=== PATIENT | female | born 1985 | race Caucasian/White ===

== ENCOUNTER 2024-05-02 14:17 | Outpatient (CLI) | payer OTHER ==
[~2024-05-02 14:17] MED LIST: IRON1 TAB PO; PEPCID40 MG PO; PRENATAL CAPLE1 EACH PO
== END 2024-05-02 14:18 | disposition home or self-care (01) ==
LOC: PRENATAL 14:17
PROVIDERS: ATTEND Obstetrics & Gynecology Maternal & Fetal Medicine
DX: O35.3XX0 Maternal care for (suspected) damage to fetus from viral disease in mother, not applicable or unspecified (principal); O44.00 Complete placenta previa NOS or without hemorrhage, unspecified trimester; O09.529 Supervision of elderly multigravida, unspecified trimester; O34.10 Maternal care for benign tumor of corpus uteri, unspecified trimester; Z3A.20 20 weeks gestation of pregnancy

== ENCOUNTER → 2024-07-21 14:46 | Outpatient (CLI) | payer OTHER | END | disposition home or self-care (01) | LOC: PRENATAL 14:46 | PROVIDERS: ATTEND Obstetrics & Gynecology Maternal & Fetal Medicine | DX: O26.849 Uterine size-date discrepancy, unspecified trimester (principal); O36.8199 Decreased fetal movements, unspecified trimester, other fetus; O09.529 Supervision of elderly multigravida, unspecified trimester; O34.10 Maternal care for benign tumor of corpus uteri, unspecified trimester; O99.019 Anemia complicating pregnancy, unspecified trimester; Z3A.32 32 weeks gestation of pregnancy ==

== ENCOUNTER 2024-09-05 13:00 | Inpatient (IN) | payer OTHER ==
[~2024-09-05] VITALS: Ht 160 cm; Wt 70.3 kg
[2024-09-07] VITALS (9 sets, daily range): BP systolic 100–131; BP diastolic 51–81
[2024-09-07] MEDS ORDERED: RINGERS SOLUTION,LACTATED 1,000 ML IV SCH (06:45)
[2024-09-07 07:05] LABS: URINE APPEARANCE Clear; URINE BILIRRUBIN Negative (NEGATIVE); URINE BLOOD Small; URINE COLOR Yellow; URINE GLUCOSE Negative (NEGATIVE); URINE KETONE Negative (NEGATIVE); URINE LEUKOCYTE Large; URINE NITRATE Negative; URINE PROTEIN Negative (NEGATIVE); URINE UROBILINOGEN 0.2 E.U./dl
[2024-09-07 07:06] LABS: URINE BACTERIA 1278.8 uL (0.0-1933); URINE EPITHELIAL CELLS 28.3 uL (0.0-38.8); URINE RBC 2.9 uL (0.0-20.8)
[2024-09-07 07:10] LABS: HEMATOCRIT 38.4 % (36.0-45.00); HEMOGLOBIN 13.4 g/dL (12.0-15.00); MEAN CELL VOLUME 95.5 fL (80.00-100.00); MEAN CORPUSCULAR HEMOGLOBIN 33.4 pg (27.00-32.0); PLATELET COUNT 260 K/uL (150-450); RED BLOOD COUNT 4.02 M/uL (4.00-6.00); RED CELL DISTRIBUTION WIDTH 13.6 % (11.5-14.5)
[2024-09-07 07:29] LABS: INR < 0.93; PARTIAL THROMBOPLASTIN TIME 27.1 SECONDS (22.0-34.0); PROTHROMBIN TIME 9.8 SECONDS (9.0-11.5)
[2024-09-07 08:28] LABS: BILIRUBIN TOTAL 0.79 mg/dL (0.3-1.2); CALCIUM 9.5 mg/dL (8.5-10.1); CREATININE SERUM 0.41 mg/dL (0.55-1.02); GFR 174.56; GLOBULINA 3.9 G/DL (2.4-3.5); POTASSIUM 3.94 mEq/L (3.5-5.1); TOTAL PROTEIN 6.9 gm/dL (6.4-8.2)
[2024-09-07] MEDS ORDERED: OXYTOCIN 500 ML IV SCH (10:00)
[2024-09-07] MEDS ORDERED: ERYTHROMYCIN BASE OPHT 1GM EACH TUBE OP ONE ×2 (11:20→13:45)
[2024-09-07] MEDS ORDERED: CHLORHEXIDINE GLUCONATE 120 ML BOTTLE TOP ONE ×2 (11:20→13:45)
[2024-09-07] MEDS ORDERED: OXYTOCIN 20 UNITS/1000ML RL PIGGYBAG IV ONE ×2 (11:20→13:09)
[2024-09-07] MEDS ORDERED: LIDOCAINE HCL 1% 10ML VIAL ONE (11:20)
[2024-09-07] MEDS ORDERED: METHYLERGONOVINE MALEATE 0.2 MG/ML AMPUL ONE (11:34)
[2024-09-07] MEDS ORDERED: ACETAMINOPHEN 500 MG GEL..CAP PO PRN (13:45)
[2024-09-07] MEDS ORDERED: LIDOCAINE HCL 1% 10ML VIAL IJ ONE (13:45)
[2024-09-07] MEDS ORDERED: OXYTOCIN 1,000 ML IV SCH ×2 (13:45)
[2024-09-07] MEDS ORDERED: CHLORHEXIDINE GLUCONATE 120 ML BOTTLE TOP SCH (13:45)
[2024-09-07] MEDS ORDERED: IBUprofen 400 MG TABLET PO PRN (13:45)
[2024-09-07] MEDS ORDERED: METHYLERGONOVINE MALEATE 0.2 MG/ML AMPUL IM ONE (15:15)
[2024-09-07] MEDS ORDERED: DOCUSATE SODIUM 100MG CAP PO SCH (17:00)
[2024-09-07] MEDS ORDERED: BENZOCAINE/MENTHOL 90 ML BOTTLE TOP SCH (18:00)
[2024-09-08] VITALS: BP 101/68
[2024-09-08 08:34] VITALS: BP 109/74
[2024-09-08 17:51] VITALS: BP 117/80
[2024-09-08 21:54] VITALS: BP 112/74
[2024-09-09 00:22] VITALS: BP 100/64
[2024-09-09 08:00] VITALS: BP 101/66
== END 2024-09-09 15:17 | disposition home or self-care (01) | DRG 807 ==
LOC: LDR 13:00 → OB/GYN 09-07 06:00 → LDR 09-07 06:00 → OB/GYN 09-07 15:47
PROVIDERS: Obstetrics & Gynecology; ADMIT Obstetrics & Gynecology; ATTEND Obstetrics & Gynecology
PROC: 10E0XZZ Delivery of Products of Conception, External Approach (ICD-10-PCS; principal; 2024-09-07)
PROC: 0KQM0ZZ Repair Perineum Muscle, Open Approach (ICD-10-PCS; 2024-09-07)
PROC: 4A1HXCZ Monitoring of Products of Conception, Cardiac Rate, External Approach (ICD-10-PCS; 2024-09-07)
DX: O70.1 Second degree perineal laceration during delivery (principal); Z37.0 Single live birth; Z3A.38 38 weeks gestation of pregnancy